=== PATIENT | male | born 1990 | race Caucasian/White ===

== ENCOUNTER 2016-10-19 19:10 | Emergency (ER) | payer OTHER ==
[2016-10-19 19:38] VITALS: BP 125/78; PULSE 82; RESP 16; TEMP 98.4
--- NOTE | 2016-10-19 19:43 | ED ---
ENT HPI - General Chief complaint: Dental/Oral Stated complaint: dental pain Time Seen by Provider: 10/19/16 19:39 Source: patient, RN notes reviewed Mode of arrival: ambulatory Limitations: no limitations - History of Present Illness Initial comments: 26 year old male presents emergency Department chief complaint of left upper dental pain. Patient states that he is always short years ago. He states it looks like it's a sister infection of his left upper region. He states normally ruptures and then goes away. States it has not states is painful. Patient states that [id number] medications are not helping. Patient denies fever or chills. Patient denies any difficulty swallowing. - Related Data Previous Rx's Medication Instructions Recorded Acetaminophen-Codeine 300-30mg 1 tab PO Q4H PRN #20 tablet 10/19/16 [Tylenol #3] Penicillin V Potassium [Pen Vee K] 500 mg PO QID #40 tab 10/19/16 Allergies Allergy/AdvReac Type Severity Reaction Status Date / Time No Known Allergies Allergy Verified 10/19/16 19:38 Review of Systems ROS Statement: Those systems with pertinent positive or pertinent negative responses have been documented in the HPI. ROS Other: All systems not noted in ROS Statement are negative. Past Medical History Past Medical History: No Reported History History of Any Multi-Drug Resistant Organisms: None Reported Additional Past Surgical History / Comment(s): JAW SURGERY, LEFT EAR SURGERY Past Psychological History: Bipolar Smoking Status: Current every day smoker Past Alcohol Use History: None Reported Past Drug Use History: Marijuana General Exam Limitations: no limitations General appearance: alert, in no apparent distress Head exam: Present: atraumatic, normocephalic, normal inspection Eye exam: Present: normal appearance, PERRL, EOMI. Absent: scleral icterus, conjunctival injection, periorbital swelling ENT exam: Present: mucous membranes moist. Absent: normal exam, normal oropharynx (There is some swelling to the upper left gum line noted mild erythema) Neck exam: Present: normal inspection, full ROM. Absent: tenderness, meningismus, lymphadenopathy Respiratory exam: Present: normal lung sounds bilaterally. Absent: respiratory distress, wheezes, rales, rhonchi, stridor Cardiovascular Exam: Present: regular rate, normal rhythm, normal heart sounds. Absent: systolic murmur, diastolic murmur, rubs, gallop, clicks Course Vital Signs 10/19/16 19:36 Temperature 98.4 F Pulse Rate 82 Respiratory 16 Rate Blood Pressure 125/78 O2 Sat by Pulse 96 Oximetry Medical Decision Making - Medical Decision Making 26-year-old male presented for dental pain. Patient has a dental infection. Patient placed on antibiotics and given pain medication. Return parameters were discussed. Disposition Clinical Impression: Dental infection, Toothache Disposition: HOME SELF-CARE Condition: Stable Instructions: Toothache (ED) Additional Instructions: Please return to the Emergency Department if symptoms worsen or any other concerns. Prescriptions: Acetaminophen-Codeine 300-30mg [Tylenol #3] 1 tab PO Q4H PRN #20 tablet PRN Reason: pain Penicillin V Potassium [Pen Vee K] 500 mg PO QID #40 tab Time of Disposition: 19:43
== END 2016-10-19 19:57 | disposition home or self-care (01) ==
LOC: EC 19:10
DX: K04.7 Periapical abscess without sinus (principal); K08.89 Other specified disorders of teeth and supporting structures; F17.200 Nicotine dependence, unspecified, uncomplicated
CPT/HCPCS: 99282

== ENCOUNTER 2016-11-06 17:47 | Emergency (ER) | payer OTHER ==
--- NOTE | 2016-11-06 18:37 | ED ---
Nausea/Vomiting/Diarrhea HPI - General Chief complaint: Nausea/Vomiting/Diarrhea Stated complaint: vomiting Time Seen by Provider: 11/06/16 18:17 Source: patient, RN notes reviewed Mode of arrival: ambulatory Limitations: no limitations - History of Present Illness Initial comments: Patient is a 26-year-old male presents to the ICU for evaluation nausea, vomiting, diarrhea and sore throat. Patient's symptoms began about 4 days ago. Patient states he thinks he has "the flu". Patient states he's been nauseous with vomiting past 4 days along with constant diarrhea. Patient denies recent travel outside the country. Patient denies trying to foods. Patient denies being on recent antibiotics. Patient denies abdominal pain. Patient states he is having throat pain. Patient states that he is having 6 out of 10 throat pain. Patient states pain is worse when he swallows. Patient denies fevers or chills. Patient denies headache or dizziness. Patient denies chest pain or shortness of breath. Patient denies any specific past medical history. Patient denies history of any abdominal surgeries. - Related Data Previous Rx's Medication Instructions Recorded Ondansetron Odt [Zofran Odt] 4 mg PO Q8HR PRN #12 tab 11/06/16 Allergies Allergy/AdvReac Type Severity Reaction Status Date / Time No Known Allergies Allergy Verified 11/06/16 18:45 Review of Systems ROS Statement: Those systems with pertinent positive or pertinent negative responses have been documented in the HPI. ROS Other: All systems not noted in ROS Statement are negative. Past Medical History Past Medical History: No Reported History History of Any Multi-Drug Resistant Organisms: None Reported Additional Past Surgical History / Comment(s): JAW SURGERY, LEFT EAR SURGERY Past Psychological History: Bipolar Smoking Status: Current every day smoker Past Alcohol Use History: None Reported Past Drug Use History: Marijuana General Exam - General Exam Comments Initial Comments: sitting in exam room, no acute distress. Limitations: no limitations General appearance: alert, in no apparent distress Head exam: Present: atraumatic, normocephalic, normal inspection Eye exam: Present: normal appearance ENT exam: Present: normal exam, normal oropharynx, mucous membranes moist, TM's normal bilaterally, normal external ear exam Neck exam: Present: normal inspection Respiratory exam: Present: normal lung sounds bilaterally. Absent: respiratory distress Cardiovascular Exam: Present: regular rate, normal rhythm, normal heart sounds GI/Abdominal exam: Present: soft, normal bowel sounds. Absent: distended, tenderness, guarding, rebound, rigid Extremities exam: Present: normal inspection Back exam: Present: normal inspection Neurological exam: Present: alert, oriented X3, CN II-XII intact, normal gait Psychiatric exam: Present: normal affect, normal mood Skin exam: Present: warm, dry, intact, normal color. Absent: rash Course Vital Signs 11/06/16 11/06/16 17:50 19:23 Temperature 97.7 F 101.0 F H Pulse Rate 106 H 84 Respiratory 16 18 Rate Blood Pressure 138/81 132/61 O2 Sat by Pulse 98 100 Oximetry Medical Decision Making - Medical Decision Making patient is a 26-year-old male since emergency room for nausea nausea, vomiting, diarrhea and throat pain. Rapid strep negative. Labs show no significant findings. Patient states he is feeling better after fluids and Zofran given. Will send patient home with Zofran advised take Pepto-Bismol for diarrhea. Patient states he understands everything that was discussed with him. Return parameters discussed. Case discussed with Dr. Forman. - Lab Data Result diagrams: 11/06/16 18:31 11/06/16 18:31 Lab Results 11/06/16 11/06/16 11/06/16 Range/Units 18:31 18:31 18:31 WBC 7.7 (3.8-10.6) k/uL RBC 5.17 (4.30-5.90) m/uL Hgb 15.3 (13.0-17.5) gm/dL Hct 45.8 (39.0-53.0) % MCV 88.7 (80.0-100.0) fL MCH 29.7 (25.0-35.0) pg MCHC 33.5 (31.0-37.0) g/dL RDW 12.4 (11.5-15.5) % Plt Count 149 L (150-450) k/uL Neutrophils % 76 % Lymphocytes % 12 % Monocytes % 8 % Eosinophils % 1 % Basophils % 1 % Neutrophils # 5.9 (1.3-7.7) k/uL Lymphocytes # 0.9 L (1.0-4.8) k/uL Monocytes # 0.6 (0-1.0) k/uL Eosinophils # 0.1 (0-0.7) k/uL Basophils # 0.1 (0-0.2) k/uL Sodium 143 (137-145) mmol/L Potassium 5.0 (3.5-5.1) mmol/L Chloride 103 (98-107) mmol/L Carbon Dioxide 27 (22-30) mmol/L Anion Gap 13 mmol/L BUN 17 (9-20) mg/dL Creatinine 0.90 (0.66-1.25) mg/dL Est GFR (MDRD) Af Amer >60 (>60 ml/min/1.73 sqM) Est GFR (MDRD) Non-Af >60 (>60 ml/min/1.73 sqM) Glucose 96 (74-99) mg/dL Calcium 9.8 (8.4-10.2) mg/dL Magnesium 2.3 (1.6-2.3) mg/dL Total Bilirubin 0.6 (0.2-1.3) mg/dL AST 24 (17-59) U/L ALT 32 (21-72) U/L Alkaline Phosphatase 60 (38-126) U/L Total Protein 7.6 (6.3-8.2) g/dL Albumin 5.1 H (3.5-5.0) g/dL Amylase 42 (30-110) U/L Lipase 61 (23-300) U/L Group A Strep Rapid Negative (Negative) Disposition Clinical Impression: Nausea and vomiting, Pharyngitis Disposition: HOME SELF-CARE Condition: Good Instructions: Pharyngitis (ED), Gastroenteritis (ED) Additional Instructions: Clear liquid diet for the next 2-3 days. Take Zofran as needed for nausea. Take Pepto-Bismol as needed for diarrhea. Tylenol or Motrin as needed for pain. Saltwater gargles for throat pain. Please follow-up with Primary care provider in 24-48 hours for reevaluation. If any new symptom arises or symptoms worsen, return to ER as soon as possible. Prescriptions: Ondansetron Odt [Zofran Odt] 4 mg PO Q8HR PRN #12 tab PRN Reason: Nausea Referrals: Татьяна Toribio MD [Primary Care Provider] - 1-2 days Time of Disposition: 19:51
[2016-11-06] MEDS ORDERED: SODIUM CHLORIDE 0.9% 1,000 ML IV ONE (18:40)
[2016-11-06] MEDS ORDERED: ONDANSETRON 4 MG/2 ML VIAL IVP STA (18:40)
[2016-11-06 18:45] LABS: Basophils # (A) 0.1 k/uL (0-0.2); Basophils % (A) 1 %; CH 30.6; CHCM 34.6; Eosinophils # (A) 0.1 k/uL (0-0.7); Eosinophils % (A) 1 %; HCT 45.8 % (39.0-53.0); HDW 2.43; HGB 15.3 gm/dL (13.0-17.5); Luc # (Auto) 0.19; Luc % (Auto) 3; Lymphocytes # (A) 0.9 k/uL (1.0-4.8); Lymphocytes % (A) 12 %; MCH 29.7 pg (25.0-35.0); MCHC 33.5 g/dL (31.0-37.0); MCV 88.7 fL (80.0-100.0); Monocytes # (A) 0.6 k/uL (0-1.0); Monocytes % (A) 8 %; Neutrophils # (A) 5.9 k/uL (1.3-7.7); Neutrophils % (A) 76 %; RBC 5.17 m/uL (4.30-5.90); RDW 12.4 % (11.5-15.5); WBC 7.7 k/uL (3.8-10.6); WBC (Perox) 7.64
[2016-11-06 18:55] LABS: ALT 32 U/L (21-72); AST 24 U/L (17-59); Alkaline Phosphatase 60 U/L (38-126); Amylase 42 U/L (30-110); Anion Gap 13 mmol/L; Blood Urea Nitrogen 17 mg/dL (9-20); Calcium 9.8 mg/dL (8.4-10.2); Carbon Dioxide 27 mmol/L (22-30); Chloride 103 mmol/L (98-107); Glucose 96 mg/dL (74-99); Magnesium 2.3 mg/dL (1.6-2.3); Non-African American GFR(MDRD) >60 (>60 ml/min/1.73 sqM); Sodium 143 mmol/L (137-145); Total Bilirubin 0.6 mg/dL (0.2-1.3); Total Protein 7.6 g/dL (6.3-8.2)
[2016-11-06 19:25] VITALS: RESP 18
[2016-11-06] MEDS ORDERED: ACETAMINOPHEN TAB 500 MG TAB PO STA (19:28)
[2016-11-06 20:05] VITALS: BP 142/70; PULSE 92; TEMP 100.5
== END 2016-11-06 20:12 | disposition home or self-care (01) ==
LOC: EC 17:47
DX: J02.9 Acute pharyngitis, unspecified (principal); R11.2 Nausea with vomiting, unspecified; R19.7 Diarrhea, unspecified; F17.200 Nicotine dependence, unspecified, uncomplicated
CPT/HCPCS: 36415; 80053; 82150; 83690; 83735; 85025; 87081; 87430; 99284; 96374; 96361; J2405

== ENCOUNTER 2016-12-21 17:54 | Emergency (ER) | payer OTHER ==
[2016-12-21 18:33] VITALS: BP 129/72; PULSE 86; RESP 16; TEMP 98
--- NOTE | 2016-12-21 18:37 | ED ---
Skin/Abscess/FB HPI - General Chief complaint: Skin/Abscess/Foreign Body Stated complaint: ABSCESS Time Seen by Provider: 12/21/16 18:33 Source: patient, RN notes reviewed Mode of arrival: ambulatory Limitations: no limitations - History of Present Illness Initial comments: 26-year-old male present emergency Department chief complaint left upper dental pain. Patient states he has a recurrent abscess and states that his been told he has to go to some specialist in [place]. He states he does not have money for this at this time. Patient states she just gets infections and usually go with antibiotics. Patient states sometimes it does resolve on their own. Patient denies any fever, chills, headache, dizziness, neck stiffness. Patient has NO KNOWN DRUG ALLERGIES. He did try some Motrin with minimal relief of his symptoms. - Related Data Previous Rx's Medication Instructions Recorded Clindamycin HCl 300 mg PO Q6HR #40 cap 12/21/16 Hydrocodone/Acetaminophen [[place] 1 tab PO Q6HR PRN #20 tab 12/21/16 5-325] Allergies Allergy/AdvReac Type Severity Reaction Status Date / Time No Known Allergies Allergy Verified 12/21/16 18:33 Review of Systems ROS Statement: Those systems with pertinent positive or pertinent negative responses have been documented in the HPI. ROS Other: All systems not noted in ROS Statement are negative. Past Medical History Past Medical History: No Reported History History of Any Multi-Drug Resistant Organisms: None Reported Past Surgical History: No Surgical Hx Reported Additional Past Surgical History / Comment(s): JAW SURGERY, LEFT EAR SURGERY Past Psychological History: Bipolar Smoking Status: Current every day smoker Past Alcohol Use History: None Reported Past Drug Use History: Marijuana General Exam Limitations: no limitations General appearance: alert, in no apparent distress Head exam: Present: atraumatic, normocephalic, normal inspection Eye exam: Present: normal appearance, PERRL, EOMI. Absent: scleral icterus, conjunctival injection, periorbital swelling ENT exam: Present: mucous membranes moist, TM's normal bilaterally, normal external ear exam, other (Mild left cheek swelling and tenderness). Absent: normal exam, normal oropharynx (There is mild swelling of the left upper gum region no drainable abscess then applied.) Neck exam: Present: normal inspection, full ROM. Absent: tenderness, meningismus, lymphadenopathy Respiratory exam: Present: normal lung sounds bilaterally, chest wall tenderness. Absent: respiratory distress, wheezes, rales, rhonchi, stridor Cardiovascular Exam: Present: regular rate, normal rhythm, normal heart sounds. Absent: systolic murmur, diastolic murmur, rubs, gallop, clicks Course Vital Signs 12/21/16 18:31 Temperature 98.0 F Pulse Rate 86 Respiratory 16 Rate Blood Pressure 129/72 O2 Sat by Pulse 99 Oximetry Medical Decision Making - Medical Decision Making 26-year-old male present emergency Department chief complaint of left upper dental pain. He was placed on antibiotics at this time is his recurrent abscesses. Patient was also given pain medication return parameters were discussed. Disposition Clinical Impression: Dental abscess Disposition: HOME SELF-CARE Condition: Stable Instructions: Dental Abscess (ED) Additional Instructions: Please return to the Emergency Department if symptoms worsen or any other concerns. Prescriptions: Clindamycin HCl 300 mg PO Q6HR #40 cap Hydrocodone/Acetaminophen [[place] 5-325] 1 tab PO Q6HR PRN #20 tab PRN Reason: Pain Referrals: Татьяна Toribio MD [Primary Care Provider] - 1-2 days Time of Disposition: 18:36
== END 2016-12-21 18:51 | disposition home or self-care (01) ==
LOC: EC 17:54
DX: K04.7 Periapical abscess without sinus (principal); F17.200 Nicotine dependence, unspecified, uncomplicated
CPT/HCPCS: 99282